=== PATIENT | female | born 1980 | race Caucasian/White ===

== ENCOUNTER 2018-10-24 15:44 | Emergency (ER) | payer MEDICAID ==
[~2018-10-24] VITALS: Ht 165.1 cm; Wt 137.6 kg
[~2018-10-24 15:44] MED LIST: DENIES
[2018-10-24 16:14] VITALS: Ht 165.1 cm; Wt 137.6 kg
[2018-10-24] MEDS ORDERED: ACETAMINOPHEN 325 MG TAB PO ONE (19:00)
[2018-10-24] MEDS ORDERED: ACET325T33 PO (19:52)
--- NOTE | 2018-10-24 19:53 | ERD ---
ER Documentation Chief Complaint Chief Complaint salazar x 3 days; 13 wks ROS All systems reviewed and are negative except as per history of present illness. Medications Home Meds Active Scripts Acetaminophen* (Tylenol*) 325 Mg Tablet, 2 TAB PO Q8 PRN for PAIN AND OR ELEVATED TEMP, #30 TAB Prov:SINDI PHAN DO 10/24/18 Reported Medications [Denies] No Conflict Check 07/12/11 Allergies Allergies: Coded Allergies: No Known Drug Allergies (Verified Allergy, Unknown, 01/14/15) PMhx/Soc Anesthesia Reaction: No Hx Neurological Disorder: No Hx Respiratory Disorders: No Hx Cardiac Disorders: No Hx Psychiatric Problems: No Hx Miscellaneous Medical Probl: No Hx Alcohol Use: No Hx Substance Use: No Hx Tobacco Use: No Smoking Status: Never smoker Physical Exam Vitals Vital Signs Date Temp Pulse Resp B/P (MAP) Pulse Ox O2 O2 Flow FiO2 Time Delivery Rate 10/24/18 98.6 66 18 125/75 98 16:14 (92) Physical Exam Const: No acute distress Head: Atraumatic Eyes: Normal Conjunctiva ENT: Normal External Ears, Nose and Mouth. Neck: Full range of motion. No meningismus. Resp: Clear to auscultation bilaterally Cardio: Regular rate and rhythm, no murmurs Abd: Soft, non tender, non distended. Normal bowel sounds Skin: No petechiae or rashes Back: No midline or flank tenderness Ext: No cyanosis, or edema Neur: Awake and alert Psych: Normal Mood and Affect Result Diagram: 10/24/18181810/24/181818 Results 24 hrs Laboratory Tests Test 10/24/18 18:19 10/24/18 18:25 White Blood Count 10.5 10^3/ul Red Blood Count 4.54 10^6/ul Hemoglobin 12.8 g/dl Hematocrit 39.9 % Mean Corpuscular Volume 87.9 fl Mean Corpuscular Hemoglobin 28.2 pg Mean Corpuscular Hemoglobin Concent 32.1 g/dl Red Cell Distribution Width 14.2 % Platelet Count 298 10^3/UL Mean Platelet Volume 9.6 fl Immature Granulocytes % 0.600 % Neutrophils % 62.9 % Lymphocytes % 23.1 % Monocytes % 4.7 % Eosinophils % 8.5 % Basophils % 0.2 % Nucleated Red Blood Cells % 0.0 /100WBC Immature Granulocytes # 0.060 10^3/ul Neutrophils # 6.6 10^3/ul Lymphocytes # 2.4 10^3/ul Monocytes # 0.5 10^3/ul Eosinophils # 0.9 10^3/ul Basophils # 0.0 10^3/ul Nucleated Red Blood Cells # 0.0 10^3/ul Sodium Level 136 mmol/L Potassium Level 4.4 mmol/L Chloride Level 103 mmol/L Carbon Dioxide Level 23 mmol/L Anion Gap 10 Blood Urea Nitrogen 10 mg/dl Creatinine 0.54 mg/dl Est Glomerular Filtrat Rate mL/min > 60 mL/min Glucose Level 96 mg/dl Calcium Level 10.3 mg/dl Total Bilirubin 0.1 mg/dl Direct Bilirubin 0.00 mg/dl Indirect Bilirubin 0.1 mg/dl Aspartate Amino Transf (AST/SGOT) 25 IU/L Alanine Aminotransferase (ALT/SGPT) 7 IU/L Alkaline Phosphatase 105 IU/L Total Protein 8.4 g/dl Albumin 4.2 g/dl Globulin 4.20 g/dl Albumin/Globulin Ratio 1.00 Urine Color YELLOW Urine Clarity SLIGHTLY CLOUDY Urine pH 5.0 Urine Specific [place] 1.011 Urine Ketones NEGATIVE mg/dL Urine Nitrite NEGATIVE mg/dL Urine Bilirubin NEGATIVE mg/dL Urine Urobilinogen NEGATIVE mg/dL Urine Leukocyte Esterase NEGATIVE Courtney/ul Urine Microscopic RBC 1 /HPF Urine Microscopic WBC 8 /HPF Urine Squamous Epithelial Cells MODERATE /HPF Urine Bacteria FEW /HPF Urine Mucus FEW /HPF Urine Hemoglobin NEGATIVE mg/dL Urine Glucose NEGATIVE mg/dL Urine Total Protein NEGATIVE mg/dl Current Medications Medications Dose Sig/Eloisa Start Time Status Last (Trade) Ordered Route PRN Stop Time Admin Dose Reason Admin 650 mg ONCE ONCE 10/24/18 DC 10/24/18 Acetaminophen PO 19:00 18:58 (Tylenol 10/24/18 19:01 Tab) Departure Diagnosis: Primary Impression: Headache Headache type: unspecified Headache chronicity pattern: unspecified pattern Intractability: not intractable Qualified Codes: R51 - Headache Condition: Fair Patient Instructions: Self-Care for Headaches Referrals: COMMUNITY CLINICS YOU HAVE RECEIVED A MEDICAL SCREENING EXAM AND THE RESULTS INDICATE THAT YOU DO NOT HAVE A CONDITION THAT REQUIRES URGENT TREATMENT IN THE EMERGENCY DEPARTMENT. FURTHER EVALUATION AND TREATMENT OF YOUR CONDITION CAN WAIT UNTIL YOU ARE SEEN IN YOUR DOCTORS OFFICE WITHIN THE NEXT 1-2 DAYS. IT IS YOUR RESPONSIBILITY TO MAKE AN APPOINTMENT FOR FOLOW-UP CARE. IF YOU HAVE A PRIMARY DOCTOR --you should call your primary doctor and schedule an appointment IF YOU DO NOT HAVE A PRIMARY DOCTOR YOU CAN CALL OUR PHYSICIAN REFERRAL HOTLINE AT IF YOU CAN NOT AFFORD TO SEE A PHYSICIAN YOU CAN CHOSE FROM THE FOLLOWING [facility] [address] [facility] [address] [facility] [facility] [address] [facility] [address] [facility] [address] [facility] [facility] [address] Additional Instructions: Llame al doctor MAANA y rhiannon bridger KEO PARA DENTRO DE 1-2 MEDINA.Dgale a la sec retaria que nosotros le instruimos hacer esta keo.Avise o llame si park condicin se empeora antes de la keo. Regresa aqui si peor o no mejor. SINDI PHAN DO Oct 24, 2018 19:53
[2018-10-24 20:03] VITALS: BP 128/74; PULSE 93; RESP 18
== END 2018-10-24 20:05 | disposition home or self-care (01) ==
LOC: FTE 15:44
DX: O99.89 Other specified diseases and conditions complicating pregnancy, childbirth and the puerperium (principal); R51 Headache; Z3A.13 13 weeks gestation of pregnancy
CPT/HCPCS: 36415; 80053; 81001; 85025; Z7502; Z7610; 81003; 99283

== ENCOUNTER 2019-04-04 14:05 | Outpatient (CLI) | payer MEDICAID ==
[~2019-04-04] VITALS: Ht 157.5 cm; Wt 146.4 kg
[~2019-04-04 14:05] MED LIST changes: +ACET325T33 PO; +PNV11TAB PO
[2019-04-04 15:04] VITALS: Ht 157.5 cm; Wt 146.4 kg
[2019-04-04 15:05] VITALS: BP 112/69; PULSE 69; RESP 19
[2019-04-04] MEDS ORDERED: LACTATED RINGER'S 1,000 ML IV ONE (17:00)
[2019-04-04] MEDS ORDERED: LACTATED RINGER'S 1,000 ML IV SCH (17:00)
--- NOTE | 2019-04-04 22:50 | TRIAGE ---
OB Triage Datetime Report Generated by CPN: 04/04/2019 22:50 Datetime: 04/04/2019 15:08 Assessment Type: Triage Maternal Assessment Level of Consciousness: Keenly Alert, Responsive DTR's/Clonus: DTRs 2+; No Clonus Headache: Denies Blurred Vision: No Respiratory Effort: Unlabored; Regular Rhythm; Equal Expansion Breath Sounds, Left: Clear and Equal Breath Sounds, Right: Clear and Equal Nausea/Vomiting: Denies RUQ Epigastric Pain: Denies Lower Extremities Edema: None Degree: None Upper Extremities Edema: None Degree: None Facial Edema: None Fall Risk Assessment History of Falling: (0) No Secondary Diagnosis: (0) No Ambulatory Aid: (0) Bedrest/Nurse Assist IV Therapy: (0) No Gait: (0) Normal/Bedrest/Immobile Mental Status: (0) Oriented to Own Ability Fall Score: 0 Fall Risk Score Definition: No Risk: No action required Datetime: 04/04/2019 15:07 Time of Arrival: 04/04/2019 13:52 EGA: 37.0 Arrived By: Ambulatory Arrived From: Office Chief Complaint: R/O PIH Movement: Present Contractions: Denies/Absent Rupture of Membranes: Denies Vaginal Bleeding: None Vaginal Discharge: Denies Recent Sexual Intercouse: Denies Abdominal Trauma: Not Applicable Patient Complaints: None; Other Time Provider Notified: 04/04/2019 16:39 Provider Notified: POOL Initial Plan: NST PIH LABS AND BPP
--- NOTE | 2019-04-04 22:56 | TRIAGE ---
OB Triage Datetime Report Generated by CPN: 04/04/2019 22:56 Datetime: 04/04/2019 19:30 Assessment Type: Triage Level of Consciousness: Keenly Alert, Responsive DTR's/Clonus: DTRs 2+; No Clonus Headache: Denies Blurred Vision: No Respiratory Effort: Unlabored; Regular Rhythm; Equal Expansion Nausea/Vomiting: Denies RUQ Epigastric Pain: Denies Lower Extremities Edema: None Degree: None Upper Extremities Edema: None Degree: None Facial Edema: None History of Falling: (0) No Secondary Diagnosis: (0) No Ambulatory Aid: (0) Bedrest/Nurse Assist Gait: (0) Normal/Bedrest/Immobile Mental Status: (0) Oriented to Own Ability Datetime: 04/04/2019 15:08 Fall Score: 0 Fall Risk Score Definition: No Risk: No action required Datetime: 04/04/2019 15:07 EGA: 37.0
--- NOTE | 2019-04-05 00:27 | PN ---
Triage Information Date/Time April 04, 2019 Reason for visit: High blood pressure noted during office visit Weeks of Gestation 37 weeks /Para 6 para 4 Hypertention: induced Additional information 38-year-old G6, P4 with IUP at 37 weeks with history of chronic hypertension was sent from the clinic due to elevated blood pressure noted during office visit. She has been currently on labetalol. She denies any leaking of fluid, vaginal bleeding or decreased movement. Patient denies any headache, blurred vision, epigastric pain or right upper quadrant pain. records are not available at the time of patient's assessment Objective Vital Signs Date Temp Pulse Resp B/P (MAP) Pulse Ox O2 O2 Flow FiO2 Time Delivery Rate 04/04/19 98.3 69 19 112/69 Room Air 15:05 (83) Intake and Output 04/04/19 04/04/19 04/05/19 1515:00 23:00 07:00 IntakeIntake Total 1000 ml BalanceBalance 1000 ml Heart Rate: 130's Heart Rate Comments Category 1 and reactive Contractions: None Exam General appearance: Alert and oriented x4 does not appear to be in any acute distress, obese Abdomen: Soft, gravid, fundal height appears to be consistent with gestational a ge Extremities: 2+ bilateral symmetric edema BPP: 04/05 NST: Reactive Blood pressures during monitoring between 09 13-- [facility] labs are negative Results/Medications Result Diagram: 04/04/19 1509 04/04/19 1509 Results 24 hrs Laboratory Tests Test 04/04/19 15:09 04/04/19 15:20 White Blood Count 10.5 Red Blood Count 4.13 L Hemoglobin 11.3 L Hematocrit 36.9 L Mean Corpuscular Volume 89.3 Mean Corpuscular Hemoglobin 27.4 L Mean Corpuscular Hemoglobin Concent 30.6 L Red Cell Distribution Width 14.3 Platelet Count 224 # Mean Platelet Volume 11.2 H Immature Granulocytes % 0.500 H Neutrophils % 64.3 Lymphocytes % 20.3 Monocytes % 5.7 Eosinophils % 9.0 H Basophils % 0.2 Nucleated Red Blood Cells % 0.0 Immature Granulocytes # 0.050 H Neutrophils # 6.8 Lymphocytes # 2.1 Monocytes # 0.6 Eosinophils # 1.0 H Basophils # 0.0 Nucleated Red Blood Cells # 0.0 Prothrombin Time 13.4 Prothrombin Time Ratio 1.0 INR International Normalized Ratio 1.01 Activated Partial Thromboplast Time 30.1 Fibrinogen 619.0 H Sodium Level 134 L Potassium Level 4.0 Chloride Level 104 Carbon Dioxide Level 23 Anion Gap 7 Blood Urea Nitrogen 8 Creatinine 0.61 Est Glomerular Filtrat Rate mL/min > 60 Glucose Level 73 Uric Acid 5.2 Calcium Level 9.2 Total Bilirubin 0.5 Direct Bilirubin 0.00 Indirect Bilirubin 0.5 Aspartate Amino Transf (AST/SGOT) 23 Alanine Aminotransferase (ALT/SGPT) 30 Alkaline Phosphatase 198 H Total Protein 7.6 Albumin 3.5 Globulin 4.10 H Albumin/Globulin Ratio 0.85 Urine Color YELLOW Urine Clarity SLIGHTLY CLOUDY A Urine pH 6.0 Urine Specific [place] 1.018 Urine Ketones NEGATIVE Urine Nitrite NEGATIVE Urine Bilirubin NEGATIVE Urine Urobilinogen NEGATIVE Urine Leukocyte Esterase NEGATIVE Urine Microscopic RBC 0 Urine Microscopic WBC 2 Urine Squamous Epithelial Cells FEW Urine Bacteria FEW A Urine Mucus FEW A Urine Hemoglobin NEGATIVE Urine Glucose NEGATIVE Urine Total Protein NEGATIVE Imaging Results PROCEDURE: US OB biophysical profile. CLINICAL INDICATION: Decreased movements TECHNIQUE: Multiple sonographic images of the pelvis were obtained. The images were reviewed on a PACS workstation. COMPARISON: 04/03/2019 FINDINGS: There is a single viable intrauterine gestation. Cardiac activity is present with 173 beats per minute. There is a vertex presentation. The placenta is right lateral. There is no evidence of placental abruption. There is a normal amount of amniotic fluid with an DOUGLAS = 15.9 cm. Biophysical profile: movement 2/2 tone 2/2. breathing 2/2 DOUGLAS 2/2 Total 04/05 IMPRESSION: Normal biophysical profile. RPTAT: BBCC Disposition: Discharge Assessment/Plan IUP at 37 weeks Chronic hypertension, on labetalol Blood pressures during monitoring are all within normal limits. Patient is asymptomatic. PIH labs are all negative. No evidence of labor. testing reassuring. Patient discharged home in stable condition with a strict preeclampsia precaution, labor precautions and kick counts. She has a follow-up appoin [facility] tomorrow for ultrasound with Dr. Sanchez's office. Patient was advised to have her blood pressure check at her follow-up visit with ultrasound and to inform her perinatologist. Signs and symptoms of superimposed preeclampsia discussed with the patient and precaution was given. Patient verbalized understanding. All questions answered to patient with satisfaction. AURORA GUERRERO MD Apr 05, 2019 00:26
== END 2019-04-04 21:49 | disposition home or self-care (01) ==
LOC: OBT 14:05 → L-D 14:06 → OBT 21:49
PROVIDERS: ATTEND Obstetrics & Gynecology
DX: O13.3 Gestational [pregnancy-induced] hypertension without significant proteinuria, third trimester (principal); Z3A.37 37 weeks gestation of pregnancy
CPT/HCPCS: 36415; 76818; 80053; 81001; 84560; 85025; 85384; 85610; 85730; 96360; 96361; J7120; Z7500; 81003; G0463

== ENCOUNTER 2019-04-11 12:19 | Inpatient (IN) | payer MEDICAID ==
[~2019-04-11] VITALS: Ht 157.5 cm; Wt 145.4 kg
[~2019-04-11 12:19] MED LIST changes: -ACET325T33 PO; +CEPH-443 PO; -DENIES; +NAPR-985 PO
[2019-04-11 13:07] VITALS: Ht 157.5 cm; Wt 145.4 kg
[2019-04-11 13:08] VITALS: BP 147/79
[2019-04-11] MEDS: LACTATED RINGER'S 1,000 ML IV SCH ×2 (14:50→22:41)
[2019-04-11] MEDS ORDERED: MISOPROSTOL 200 MCG TAB PR PRN ×2 (15:00→20:30)
[2019-04-11] MEDS ORDERED: OXYTOCIN 30 UNITS/LR 500 ML IV SCH ×2 (15:00→20:18)
[2019-04-11] MEDS ORDERED: CARBOPROST 250 MCG INJ IM PRN ×2 (15:00→20:30)
[2019-04-11] MEDS ORDERED: METHYLERGONOVINE 0.2 MG INJ IM PRN (15:00)
[2019-04-11] MEDS ORDERED: CEFAZOLIN 3 GM in DEXTROSE 5% 100 ML IV ONE (15:00)
[2019-04-11] MEDS ORDERED: OXYTOCIN 30 UNITS/LR 500 ML IV PRN ×2 (15:00→20:30)
[2019-04-11] MEDS ORDERED: ONDANSETRON 4 MG INJ ONE (17:56)
[2019-04-11] MEDS ORDERED: morphine SULFATE/PF (10 MG/10 ML) INJ ONE (17:56)
[2019-04-11] MEDS ORDERED: OXYTOCIN 10 UNIT INJ ONE (17:56)
[2019-04-11] MEDS ORDERED: OXYTOCIN 30 UNITS/LR 500 ML BAG IV ONE (17:56)
[2019-04-11] MEDS ORDERED: PHENYLephrine 10 MG INJ ONE (18:16)
[2019-04-11] MEDS ORDERED: NALOXONE (0.4 MG/ML) INJ IV PRN (19:30)
[2019-04-11] MEDS ORDERED: ONDANSETRON 4 MG INJ IV PRN (19:30)
[2019-04-11] MEDS ORDERED: morphine 2 MG INJ IV PRN (19:30)
[2019-04-11] MEDS: KETOROLAC 30 MG INJ IV PRN (20:03)
[2019-04-11] MEDS ORDERED: NACL 0.9% 3 ML SYG IV SCH (20:30)
[2019-04-11] MEDS ORDERED: OXYCODONE/ACETAMINOPHEN (5/325) TAB PO PRN (20:30)
[2019-04-11] MEDS: DIPHENHYDRAMINE 50 MG INJ IV PRN (20:56)
[2019-04-11] MEDS: SENNA/DOCUSATE NA (8.6MG/50MG) TAB PO SCH (21:00)
[2019-04-11 21:20] VITALS: BP 116/57; RESP 19
[2019-04-11] MEDS: IBUPROFEN 800 MG TAB PO SCH (22:00)
[2019-04-11] MEDS: CEFAZOLIN 2 GM/50 ML (PMX) 50 ML IVPB SCH (23:00)
[2019-04-12] VITALS: BP 94/50; RESP 18
[2019-04-12] MEDS: LANOLIN HPA 1 PKT TOP PRN ×2 (00:47→18:22)
[2019-04-12] MEDS: CEFAZOLIN 2 GM/50 ML (PMX) 50 ML IVPB SCH ×3 (01:38→17:45)
[2019-04-12 04:00] VITALS: BP 115/44; RESP 19
[2019-04-12] MEDS: IBUPROFEN 800 MG TAB PO SCH ×3 (06:00→21:31)
[2019-04-12 08:00] VITALS: BP 86/58; PULSE 64; RESP 18
[2019-04-12] MEDS: SENNA/DOCUSATE NA (8.6MG/50MG) TAB PO SCH ×2 (08:39→21:31)
[2019-04-12] MEDS: LACTATED RINGER'S 1,000 ML IV SCH ×3 (11:21→22:41)
[2019-04-12] MEDS: KETOROLAC 30 MG INJ IV PRN (12:22)
[2019-04-12] MEDS: DIPHENHYDRAMINE 50 MG INJ IV PRN (12:23)
[2019-04-12 13:00] VITALS: BP 106/51; PULSE 73; RESP 18
[2019-04-12 16:45] VITALS: BP 107/64; RESP 18
[2019-04-12 20:30] VITALS: BP 112/53; PULSE 75; RESP 19
[2019-04-12] MEDS: OXYCODONE/ACETAMINOPHEN (5/325) TAB PO PRN (21:31)
[2019-04-13] MEDS: OXYCODONE/ACETAMINOPHEN (5/325) TAB PO PRN ×3 (02:44→18:04)
[2019-04-13 04:00] VITALS: BP 99/54; PULSE 62; RESP 17
[2019-04-13] MEDS: IBUPROFEN 800 MG TAB PO SCH ×3 (05:36→22:18)
[2019-04-13] MEDS: LACTATED RINGER'S 1,000 ML IV SCH ×3 (06:41→22:41)
[2019-04-13 08:30] VITALS: BP 109/56; PULSE 65; RESP 20
[2019-04-13] MEDS: SENNA/DOCUSATE NA (8.6MG/50MG) TAB PO SCH ×2 (10:06→20:33)
[2019-04-13 17:25] VITALS: BP 110/55; PULSE 70; RESP 18
[2019-04-13 19:50] VITALS: BP 105/48; PULSE 64; RESP 20
[2019-04-13] MEDS: LANOLIN HPA 1 PKT TOP PRN (20:33)
[2019-04-14] MEDS: OXYCODONE/ACETAMINOPHEN (5/325) TAB PO PRN ×2 (00:03→10:50)
[2019-04-14 04:25] VITALS: BP 126/76; PULSE 63; RESP 21
[2019-04-14] MEDS: IBUPROFEN 800 MG TAB PO SCH ×2 (05:38→14:07)
[2019-04-14] MEDS: LACTATED RINGER'S 1,000 ML IV SCH (06:41)
[2019-04-14 08:00] VITALS: BP_SYST 103; BP_SYST 128; BP_DIAS 55; BP_DIAS 76; PULSE 62; PULSE 81; RESP 18; RESP 20
[2019-04-14] MEDS: SENNA/DOCUSATE NA (8.6MG/50MG) TAB PO SCH (09:00)
== END 2019-04-14 15:51 | disposition home or self-care (01) | DRG 785 ==
LOC: OBT 12:19 → L-D 12:20 → OBT 14:25 → L-D 14:25 → PP1 21:37
PROVIDERS: ADMIT Obstetrics & Gynecology; ATTEND Obstetrics & Gynecology
PROC: 0UB70ZZ Excision of Bilateral Fallopian Tubes, Open Approach (ICD-10-PCS; 2019-04-11)
PROC: 10D00Z1 Extraction of Products of Conception, Low, Open Approach (ICD-10-PCS; principal; 2019-04-11 16:15)
DX: O14.94 Unspecified pre-eclampsia, complicating childbirth (principal); O99.214 Obesity complicating childbirth; E66.01 Morbid (severe) obesity due to excess calories; O34.211 Maternal care for low transverse scar from previous cesarean delivery; Z3A.38 38 weeks gestation of pregnancy; Z37.0 Single live birth; Z30.2 Encounter for sterilization
CPT/HCPCS: 76818; 80053; 81001; 84560; 85025; 85384; 85610; 85730; 86592; 86850; 86900; 86901; 87340; 88302; 99464; G0463; J0690; J1200; J1885; J2270; J2274; J2370; J2405; J2590; J7120

== ENCOUNTER 2019-05-01 10:13 | Emergency (ER) | payer MEDICAID ==
[~2019-05-01] VITALS: Ht 160 cm; Wt 139.4 kg
[2019-05-01 10:30] VITALS: BP 150/104; PULSE 70; RESP 18; Ht 160 cm; Wt 139.4 kg
== END 2019-05-01 12:04 | disposition home or self-care (01) ==
LOC: FTE 10:13
DX: O90.0 Disruption of cesarean delivery wound (principal)
CPT/HCPCS: 99283